=== PATIENT | female | born 1985 ===

== ENCOUNTER 2022-04-05 23:39 | Emergency (ER) | payer SELFPAY ==
[2022-04-05 23:41] VITALS: BP 97/50; PULSE 82; RESP 16; TEMP 36.2; O2SAT 96; BMI 34.9
--- NOTE | 2022-04-05 23:50 | PC.NURSE ---
PT STATED IN TRIAGE THAT SHE CAN'T AFFORD A BILL, WANTS TO KNOW IF SHE REALLY NEEDS TO BE SEEN. pT TOLD THAT THE md IS THE ONLY ONE WITH THE AUTHORITY TO MAKE THAT DECISION, AFTER AN EXAM. pT CALLED FOR HER RIDE HOME WHILE IN TRIAGE. PERINATAL INSTRUCTOR SPEAKING TO PT IN TRIAGE NOW.
== END 2022-04-06 00:17 | disposition left against medical advice (07) ==
LOC: HO.ED 04-06 00:14
PROVIDERS: Emergency Provider Emergency Medicine
DX: J30.81 Allergic rhinitis due to animal (cat) (dog) hair and dander (principal); R06.02 Shortness of breath
CPT/HCPCS: 99281